=== PATIENT | female | born 1960 | race Caucasian/White ===

== ENCOUNTER → 2019-03-22 12:11 | Outpatient (CLI) | payer BC, SELFPAY ==
[2019-03-22 13:03] LABS: Add Manual Diff / Slide Review NO; Basophils Absolute Auto 100 /uL (0-100); Basophils Percent Auto 1.4 % (0-2); Eosinophils Absolute Auto 300 /uL (0-450); Eosinophils Percent Auto 3.2 % (2-4); Hematocrit 43.6 % (36-46); Hemoglobin 14.8 g/dL (12.0-16.0); Lymphocytes Absolute Auto 2300 /uL (1100-4500); Lymphocytes Percent Auto 28.6 % (25-40); Mean Corpuscular HGB Conc 33.8 % (30-36); Mean Corpuscular Hemoglobin 30.2 PG (26-34); Mean Corpuscular Volume 89.3 fL (80-100); Monocytes Absolute Auto 500 /uL (0-900); Monocytes Percent Auto 6.8 % (3-14); Neutrophils Absolute Auto 4800 /uL (1500-7000); Platelet Count 352 X10^3/uL (150-400); Red Blood Cell Count 4.88 X10^6/uL (4.0-5.2); Red Cell Distribution Width 13.2 % (11.6-14.8)
[2019-03-22 13:15] LABS: Alanine Aminotransferase 23 IU/L (9-52); Albumin 4.5 g/dL (3.5-5.0); Albumin Globulin Ratio 1.6 (1.0-2.8); Alkaline Phosphatase 126 U/L (38-126); Aspartate Aminotransferase 21 IU/L (14-36); BUN Creatinine Ratio 14.3 (6-22); Bilirubin Total 0.5 mg/dL (0.2-1.3); Blood Urea Nitrogen 10 mg/dL (7-17); Calcium 9.4 mg/dL (8.4-10.2); Carbon Dioxide 28 mmol/L (22-32); Chloride 98 mmol/L (98-107); Cholesterol 302 mg/dL (140-199); Estimated Glomerular Filt Rate > 60.0 mL/min (>60); Globulin 2.8 g/dL (1.7-4.1); Glucose 97 mg/dL (70-100); HDL Cholesterol 80 mg/dL (40-60); HEMOLYSIS < 15 (0-50); LDL Cholesterol Calculated 194 mg/dL (<100); Sodium 135 mmol/L (137-145); Total Protein 7.3 g/dL (6.3-8.2); Triglycerides 139 mg/dL (35-150)
[2019-03-22 13:27] LABS: INR 0.9 (0.9-1.3); Prothrombin Time 10.1 SECONDS (10.1-12.7)
[2019-03-22 13:29] LABS: PTT Partial Thromboplastin Tim 31 SECONDS (26.4-36.2)
[2019-03-22 13:44] LABS: TSH w/ Reflex to FT4 1.56 uIU/mL (0.47-4.68)
[2019-03-22 13:53] LABS: Appearance Urine UA CLEAR; Bilirubin Urine UA NEGATIVE (NEGATIVE); Color Urine UA YELLOW; Glucose Urine UA NEGATIVE (Negative); Ketones Urine UA NEGATIVE (NEGATIVE); Leukocyte Esterase Urine UA NEGATIVE (NEGATIVE); Nitrite Urine UA NEGATIVE (Negative); Occult Blood Urine UA TRACE-LYSED (Negative); Protein Urine UA 2+ (Negative); Urobilinogen Urine UA 0.2 E.U./dL (0.2); pH Urine UA 7.5 (4.5-8.0)
[2019-03-22 14:22] LABS: Amorphous Sediment Urine 1+; Bacteria Urine Few (2-10); RBC Urine 0-1/HPF (0-5/HPF); Squamous Epithelial Cell Urine 5-10 /HPF (0-5/HPF); WBC Urine 1-5/HPF (0-5/HPF)
[2019-03-25 11:54] LABS: Cardiolipin Ab IgA <11 APL; Cardiolipin Ab IgG <14 GPL; Cardiolipin Ab IgM <12 MPL
[2019-03-25 13:58] LABS: Protein C Activity 185 % normal (70-180)
[2019-03-25 15:47] LABS: Angiotensin Converting Enzyme 54 U/L (9-67)
[2019-03-31 12:58] LABS: B2-Glycoprotein I IgA AB < 9; B2-Glycoprotein I IgG AB < 9; B2-Glycoprotein I IgM AB < 9
[2019-03-31 13:11] LABS: Phos. Serine AB IgM < 25
[2019-03-31 13:14] LABS: Cardiolipin Ab IgM < 11
[2019-03-31 13:34] LABS: Cardiolipin Ab IgA < 14
[2019-03-31 13:46] LABS: Cardiolipin Ab IgG < 12
[2019-03-31 13:51] LABS: Antiphospholipid Aby Panel ANTIPHOSPHOLIPID AB
== END ==
PROVIDERS: Visit Provider Internal Medicine
DX: Z86.718 Personal history of other venous thrombosis and embolism (principal); D86.0 Sarcoidosis of lung; R53.83 Other fatigue; K22.70 Barrett's esophagus without dysplasia; Z13.220 Encounter for screening for lipoid disorders
CPT/HCPCS: 36415; 80053; 80061; 81001; 81240; 81241; 82164; 84443; 85025; 85300; 85303; 85306; 85610; 85613; 85730; 86146; 86147; 86148

== ENCOUNTER → 2020-08-13 12:42 | Outpatient (CLI) | payer BC, SELFPAY ==
[2020-08-13 13:17] LABS: COVID19 -Nasal RAPID Negative (Negative)
== END ==
PROVIDERS: PCP Internal Medicine; Visit Provider Nurse Practitioner
DX: J02.9 Acute pharyngitis, unspecified (principal); R05 Cough
CPT/HCPCS: 87635

== ENCOUNTER → 2020-09-24 16:30 | Outpatient (CLI) | payer BC, SELFPAY ==
--- NOTE | 2020-09-24 16:31 | DI.MG.S_ITS ---
BILATERAL DIGITAL SCREENING MAMMOGRAM 3D/2D WITH CAD: 09/24/2020 CLINICAL: Routine screening. Family history of breast cancer. Comparison is made to exams dated: 06/03/2018 mammogram, 12/11/2016 mammogram, and 11/09/2015 mammogram - outside location. The tissue of both breasts is heterogeneously dense. This may lower the sensitivity of mammography. Current study was also evaluated with a Computer Aided Detection (CAD) system. No significant masses, calcifications, or other findings are seen in either breast. There has been no significant interval change. IMPRESSION: NEGATIVE There is no mammographic evidence of malignancy. A 1 year screening mammogram is recommended. This exam was interpreted at Station ID: [id number]. NOTE: For mammograms, a report in lay terms will be sent to the patient. Approximately 15% of breast malignancies will not be visualized mammographically. In the management of a palpable breast mass, a negative mammogram must not discourage biopsy of a clinically suspicious lesion. Electronically Signed By: Yayo barajas/jose f:09/24/2020 16:59:09 letter sent: Normal Exam ACR BI-RADS Category 1: Negative 3341F
== END ==
PROVIDERS: PCP Internal Medicine; Referring Provider Internal Medicine; Visit Provider Internal Medicine
DX: Z12.31 Encounter for screening mammogram for malignant neoplasm of breast (principal); Z80.3 Family history of malignant neoplasm of breast
CPT/HCPCS: 77063; 77067

== ENCOUNTER → 2020-12-06 14:53 | Outpatient (ROUT) | payer BC, SELFPAY ==
[2020-12-06 16:20] LABS: Alanine Aminotransferase 16 IU/L (<35); Albumin 4.2 g/dL (3.5-5.0); Albumin Globulin Ratio 1.8 (1.0-2.8); Alkaline Phosphatase 123 U/L (38-126); Aspartate Aminotransferase 23 IU/L (14-36); BUN Creatinine Ratio 19.7 (6-22); Bilirubin Total 0.3 mg/dL (0.2-1.3); Blood Urea Nitrogen 13 mg/dL (7-17); Calcium 9.9 mg/dL (8.4-10.2); Carbon Dioxide 28 mmol/L (22-32); Chloride 100 mmol/L (98-107); Cholesterol 260 mg/dL (140-199); Estimated Glomerular Filt Rate > 60.0 mL/min (>60); Globulin 2.4 g/dL (1.7-4.1); Glucose 94 mg/dL (80-110); HDL Cholesterol 71 mg/dL (40-60); HEMOLYSIS < 15 (0-50); LDL Cholesterol Calculated 163 mg/dL (<100); Potassium 5.1 mmol/L (3.4-5.1); Sodium 134 mmol/L (137-145); Total Protein 6.6 g/dL (6.3-8.2); Triglycerides 132 mg/dL (35-150)
[2020-12-06 17:53] LABS: Vitamin D 25 Hydroxy (D3) 106 ng/mL (30.0-100.0)
== END ==
PROVIDERS: PCP Internal Medicine; Visit Provider Physician Assistant
DX: J30.1 Allergic rhinitis due to pollen (principal); E55.9 Vitamin D deficiency, unspecified; I10 Essential (primary) hypertension; E78.2 Mixed hyperlipidemia
CPT/HCPCS: 80053; 80061; 82306

== ENCOUNTER → 2020-12-19 10:06 | Outpatient (CLI) | payer BC, SELFPAY ==
[2020-12-19 11:21] LABS: Add Manual Diff / Slide Review NO; Basophils Absolute Auto 100 /uL (0-100); Basophils Percent Auto 2.1 % (0-2); Eosinophils Absolute Auto 300 /uL (0-450); Eosinophils Percent Auto 5.8 % (2-4); Hematocrit 40.2 % (36-46); Hemoglobin 13.4 g/dL (12.0-16.0); Lymphocytes Absolute Auto 2300 /uL (1100-4500); Mean Corpuscular HGB Conc 33.2 % (30-36); Mean Corpuscular Hemoglobin 30.1 PG (26-34); Mean Corpuscular Volume 90.7 fL (80-100); Monocytes Absolute Auto 500 /uL (0-900); Neutrophils Absolute Auto 2600 /uL (1500-7000); Neutrophils Percent Auto 45.1 % (50-75); Platelet Count 315 X10^3/uL (150-400); Red Blood Cell Count 4.43 X10^6/uL (4.0-5.2); Red Cell Distribution Width 13.6 % (11.6-14.8); White Blood Cell Count 5.8 X10^3/uL (4.5-11.0)
== END ==
PROVIDERS: PCP Physician Assistant; Referring Provider Physician Assistant; Visit Provider Physician Assistant
DX: J30.1 Allergic rhinitis due to pollen (principal); E55.9 Vitamin D deficiency, unspecified; I10 Essential (primary) hypertension; E78.2 Mixed hyperlipidemia
CPT/HCPCS: 36415; 85025

== ENCOUNTER → 2021-04-12 17:15 | Outpatient (ROUT) | payer BC, SELFPAY ==
[2021-04-12 17:27] LABS: COVID19 -Nasal RAPID POSITIVE (Negative)
== END ==
PROVIDERS: PCP Physician Assistant; Visit Provider Nurse Practitioner
DX: U07.1 COVID-19 (principal)
CPT/HCPCS: 87635

== ENCOUNTER → 2021-04-21 10:21 | Outpatient (CLI) | payer BC, SELFPAY ==
--- NOTE | 2021-04-21 10:22 | DI.RAD.S_ITS ---
PROCEDURE: XR CHEST 2V INDICATIONS: r/o secondary infection post covid TECHNIQUE: 2 views of the chest were acquired. COMPARISON: [facility], , CHEST 1 VIEW, 02/18/2017, 21:37. FINDINGS: Surgical changes and devices: None. Lungs and pleura: Lungs are clear. No pleural effusions or pneumothorax. Mediastinum: Mediastinal contours are normal. Heart size is normal. Bones and chest wall: No suspicious bony abnormalities. Soft tissues appear unremarkable. IMPRESSION: No acute cardiopulmonary abnormality. Dictated by: Domingo Altamirano M.D. on 04/21/2021 at 9:35 Approved by: Domingo Altamirano M.D. on 04/21/2021 at 9:36
== END ==
PROVIDERS: PCP Physician Assistant; Referring Provider Nurse Practitioner; Visit Provider Nurse Practitioner
DX: R05 Cough (principal)
CPT/HCPCS: 71046

== ENCOUNTER → 2021-10-02 16:33 | Outpatient (CLI) | payer BC, SELFPAY ==
--- NOTE | 2021-10-02 | DI.MG.S_ITS ---
BILATERAL DIGITAL SCREENING MAMMOGRAM 3D/2D WITH CAD: 10/02/2021 CLINICAL: Routine screening. Family history of breast cancer. Comparison is made to exams dated: 09/24/2020 mammogram - [facility], 06/03/2018 mammogram, and 12/11/2016 mammogram - outside location. The tissue of both breasts is heterogeneously dense. This may lower the sensitivity of mammography. Current study was also evaluated with a Computer Aided Detection (CAD) system. No significant masses, calcifications, or other findings are seen in either breast. There has been no significant interval change. IMPRESSION: NEGATIVE There is no mammographic evidence of malignancy. A 1 year screening mammogram is recommended. This exam was interpreted at Station ID: [id number]. NOTE: For mammograms, a report in lay terms will be sent to the patient. Approximately 15% of breast malignancies will not be visualized mammographically. In the management of a palpable breast mass, a negative mammogram must not discourage biopsy of a clinically suspicious lesion. Electronically Signed By: Rufino blackwell/jose f:10/03/2021 08:57:29 letter sent: Normal Exam ACR BI-RADS Category 1: Negative 3341F
== END ==
PROVIDERS: PCP Physician Assistant; Referring Provider Physician Assistant; Visit Provider Physician Assistant
DX: Z12.31 Encounter for screening mammogram for malignant neoplasm of breast (principal); Z80.3 Family history of malignant neoplasm of breast
CPT/HCPCS: 77063; 77067

== ENCOUNTER → 2021-12-04 17:27 | Outpatient (CLI) | payer BC, SELFPAY ==
--- NOTE | 2021-12-04 | DI.MRI.S_ITS ---
PROCEDURE: MR CERVICAL SPINE WO CON INDICATIONS: Other migraine, intractable, with status migrains TECHNIQUE: Noncontrast sagittal T1 spin echo and T2 fast spin echo, sagittal STIR, foraminal oblique sagittal T2 fast spin echo, and axial gradient echo or T2 fast spin echo through the cervical spine. COMPARISON: None. FINDINGS: Image quality: Excellent. Alignment and Curvature: There is 3 mm retrolithesis of C3 on C4, C4 on C5, 2 mm retrolithesis of C5 on C6, 4 mm C6 on C7, 2 mm anterolithesis of C7 on T1 and T1 on T2. Bone Marrow: Marrow demonstrates normal overall signal. Spinal Cord: Visualized spinal cord has normal size and signal. No cerebellar tonsillar herniation. Paraspinous Soft Tissues: No paravertebral masses. Prevertebral soft tissues are normal in thickness. Moderate to severe disc dessication. C2-C3: Mild disc bulge without spinal stenosis. Mild to moderate left foraminal narrowing. C3-C4: Mild disc bulge with mild spinal stenosis. Severe left and moderate to severe right foraminal narrowing with uncovertebral hypertrophy. C4-C5: Mild disc bulge with moderate spinal stenosis. Severe bilateral right greater than left foraminal narrowing with uncovertebral hypertrophy. C5-C6: Mild disc bulge with moderate to severe spinal stenosis. Severe bilateral foraminal narrowing with uncovertebral hypertrophy. C6-C7: Mild disc bulge with moderate to severe spinal stenosis. Severe bilateral foraminal narrowing with uncovertebral hypertrophy. C7-T1: Mild disc bulge with mild spinal stenosis. Moderate left foraminal narrowing with uncovertebral hypertrophy. IMPRESSION: Multilevel degenerative changes. Moderate to severe spinal stenosis secondary to disc bulge. Moderate to severe foraminal narrowing secondary to uncovertebral arthropathy. Dictated by: Ayanna Jackson M.D. on 12/05/2021 at 16:50 Approved by: Ayanna Jackson M.D. on 12/05/2021 at 16:58
--- NOTE | 2021-12-04 | DI.MRI.S_ITS ---
PROCEDURE: MR HEAD/BRAIN WO/W CON INDICATIONS: Other migraine, intractable, with status migrains TECHNIQUE: Noncontrast axial T1 spin echo, axial T2 fast spin echo, sagittal and axial FLAIR, coronal T2 fast spin echo, axial gradient echo, axial diffusion and ADC through the brain. After the administration of contrast, axial and coronal 3D VIBE or T1 spin echo with fat saturation through the brain. COMPARISON: None. FINDINGS: Image quality: Excellent. CSF Spaces: Basal cisterns are patent. No extra-axial fluid collections. Ventricles are normal in size and shape. Brain: No midline shift. No intracranial bleeds or masses. There is mild, diffuse cerebral volume loss. There are mild periventricular and subcortical white matter chronic microvascular ischemic changes. No abnormal intracranial enhancement. The brainstem appears normal. Diffusion-weighted images demonstrate no acute ischemic insults. No chronic ischemic insults. Normal intravascular flow voids are present. Skull and face: Calvarial marrow is normal in signal. Orbits appear normal. Sinuses: Sinuses and mastoids appear clear. IMPRESSION: 1. No acute intracranial disease process. 2. No abnormal intracranial mass or mass effect. 3. No suspicious postcontrast enhancement. 4. No areas of acute or chronic infarction. 5. No intracranial hemorrhage. Dictated by: Noelle Salazar MD, PhD on 12/05/2021 at 10:01 Approved by: Noelle Salazar MD, PhD on 12/05/2021 at 10:05
== END ==
PROVIDERS: PCP Physician Assistant; Referring Provider Physician Assistant; Visit Provider Physician Assistant
DX: G43.811 Other migraine, intractable, with status migrainosus (principal)
CPT/HCPCS: 70553; 72141; A9579

== ENCOUNTER → 2022-01-15 10:25 | Outpatient (CLI) | payer BC, SELFPAY ==
[2022-01-15 13:00] LABS: COVID19 -Nasal RAPID Negative (Negative)
== END ==
PROVIDERS: PCP Physician Assistant; Visit Provider Family Medicine Sleep Medicine
DX: Z20.822 Contact with and (suspected) exposure to COVID-19 (principal)
CPT/HCPCS: 87635; C9803

== ENCOUNTER → 2022-01-17 10:37 | Outpatient (CLI) | payer BC, SELFPAY ==
--- NOTE | 2022-01-17 | DI.NM.S_ITS ---
PROCEDURE: NM JAMES PERF SPECT REST & STR Rest and exercise myocardial perfusion SPECT with gated imaging and ejection fraction RADIOPHARMACEUTICAL: 11.0 mCi Tc-99m sestamibi IV at rest and 25.2 mCi Tc-99m sestamibi IV at peak exercise. A two day-protocol was performed. INDICATIONS: Shortness of breath TECHNIQUE: Radiopharmaceutical was injected at peak stress test, and also at rest. SPECT images were obtained. SPECT myocardial perfusion images were displayed in short axis, horizontal long axis, and vertical long axis views. Gated images were reviewed using [employer] software. COMPARISON: None. CARDIAC STRESS: A standard Kenji treadmill exercise tolerance test was performed by the patient under the supervision of an attending staff. The patient exercised for 8 minutes and 11 seconds; functional aerobic impairment (KHAI) is -25%. Hemodynamic data: There is normal blood pressure and heart rate response to exercise stress. Patient achieved 91% of maximum predicted heart rate at peak exercise. Symptoms: Patient denied chest pain during exercise. EKG: No diagnostic EKG changes of ischemia; rare PVCs. FINDINGS: Raw data: There is good myocardial labeling by radiotracer. No significant motion artifacts. Left ventricle function: Gated images demonstrate normal left ventricle wall thickening. No segmental wall motion abnormality. No transient ischemic dilation; TID is 0.98 (normal less than 1.3). The left ventricle resting end-diastolic volume is 96 mL. Left ventricle stress ejection fraction is 77%; normal values are above 45%. Myocardial perfusion: There is normal distribution of activity in the left and right ventricular myocardium. No fixed or reversible perfusion defects. IMPRESSION: Low risk, normal treadmill nuclear stress test 1) No perfusion evidence of ischemia or infarction. 2) Normal left ventricular size, wall motion, and systolic function (EF post stress 77%). 3) No ST changes with exercise. 4) No angina during the study. 5) Good exercise tolerance (8.3 METs, KHAI -25%). Target heart rate achieved. Appropriate BP response to exercise. 6) No prior nuclear stress test available for comparison. Dictated by: Adelita Sotomayor MD on 01/17/2022 at 17:00 Approved by: Adelita Sotomayor MD on 01/17/2022 at 17:02
--- NOTE | 2022-01-17 15:27 | PM.TREADMILL ---
Cardiac Stress Test Report Referral & Results Date Patient Seen: 01/17/22 Time Patient Seen: 15:27 Requesting provider: Cori Schumacher Indication: Dyspnea on exertion Rest ECG: Sinus rhythm Procedure Note: Standard Kenji protocol, 8:11 mins, 8.3 METS Good exercise capacity, KHAI -25% Normal hemodynamic response to exercise No chest pain or anginal symptoms No significant ST changes at peak exercise Rare couplets Impression: Normal exercise stress test Nuclear images pending Please note: Actual ECG tracings can be found in the PACS system.
== END ==
PROVIDERS: PCP Physician Assistant; Referring Provider Physician Assistant; Visit Provider Physician Assistant
DX: R06.02 Shortness of breath (principal)
CPT/HCPCS: 78452; 93017; A9502

== ENCOUNTER → 2022-10-20 14:06 | Outpatient (CLI) | payer OTHER, SELFPAY ==
--- NOTE | 2022-10-20 | DI.MG.S_ITS ---
BILATERAL DIGITAL SCREENING MAMMOGRAM 3D/2D WITH CAD: 10/20/2022 CLINICAL: Routine screening. Family history of breast cancer. Comparison is made to exams dated: 10/02/2021 mammogram, 09/24/2020 mammogram - [facility], and 06/03/2018 mammogram - outside location. Both breasts are heterogeneously dense, which may obscure small masses (category c / 51-75% glandular tissue). Current study was also evaluated with a Computer Aided Detection (CAD) system. No significant masses, calcifications, or other findings are seen in either breast. There has been no significant interval change. IMPRESSION: NEGATIVE There is no mammographic evidence of malignancy. A 1 year screening mammogram is recommended. Based on the Tyrer Cuzick model (a risk assessment model) the patient's lifetime risk is 11.5% and her 10 year risk is 5.2%. According to the ACR, ACS, and NCCN guidelines, an annual breast MRI exam along with mammogram is recommended if the patient's lifetime risk is 20% or greater. This exam was interpreted at Station ID: [id number]. NOTE: For mammograms, a report in lay terms will be sent to the patient. Approximately 15% of breast malignancies will not be visualized mammographically. In the management of a palpable breast mass, a negative mammogram must not discourage biopsy of a clinically suspicious lesion. Electronically Signed By: Yayo barajas/jose f:10/20/2022 14:47:26 letter sent: Normal Exam ACR BI-RADS Category 1: Negative 3341F
== END ==
PROVIDERS: PCP Physician Assistant; Referring Provider Physician Assistant; Visit Provider Physician Assistant
DX: Z12.31 Encounter for screening mammogram for malignant neoplasm of breast (principal); Z80.3 Family history of malignant neoplasm of breast
CPT/HCPCS: 77063; 77067

== ENCOUNTER → 2023-10-30 14:08 | Outpatient (CLI) | payer OTHER, SELFPAY ==
--- NOTE | 2023-10-30 14:11 | DI.US.S_ITS ---
PROCEDURE: US PERIPH VENOUS LOW EXTREM RT INDICATIONS: RIGHT LEG SWELLING TECHNIQUE: Real-time imaging, as well as color and pulse Doppler interrogation, were performed of the lower extremity deep veins from the inguinal ligament to the popliteal fossa, with documentation of the visualized calf veins. COMPARISON: None. FINDINGS: The common femoral, femoral, popliteal, and the visualized calf veins are normally compressible, and free of intraluminal thrombus. Color and pulse Doppler demonstrate normal phasic intraluminal flow. There is normal augmentation response to distal compression maneuver. IMPRESSION: No deep venous thrombosis identified within the right lower extremity. Dictated by: Natalio DALTON Interpreted: Chilo Wright MD on 10/30/2023 at 14:51 Transcribed by: CEDRICK on 10/30/2023 at 14:52 Approved by: Chilo Wright M.D. on 10/30/2023 at 17:07
== END ==
PROVIDERS: PCP Physician Assistant; Referring Provider Internal Medicine; Visit Provider Internal Medicine
DX: M79.89 Other specified soft tissue disorders (principal)
CPT/HCPCS: 93971

== ENCOUNTER → 2023-12-03 12:12 | Outpatient (CLI) | payer OTHER, SELFPAY ==
--- NOTE | 2023-12-03 12:13 | DI.RAD.S_ITS ---
Bone Density Report Name: DWIGHT JOHNSON Age: 63 Sex: Female Ethnicity: White Date of : 1960 Indication: postmenopausal; screening for osteoporosis; prior fracture; Referring Provider: GENEVA YOUNG Study: Bone densitometry was performed. Exam Date: December 03, 2023 Accession number: [id number] Bone Density: Region BMD T-score Z-score Classification AP Spine(L1, L2, L3) 0.801 -2.0 -0.3 Osteopenia Femoral Neck (Left) 0.509 -3.1 -1.6 Osteoporosis Total Hip (Left) 0.596 -2.8 -1.6 Osteoporosis Total Forearm (Left) 0.380 -3.7 -2.1 Osteoporosis 1/3 Forearm (Left) 0.488 -3.4 -1.8 Osteoporosis UD Forearm (Left) 0.292 -2.6 -1.5 Osteoporosis World Health Organization criteria for BMD impression classify patients as: Normal (T-score at or above -1.0), Osteopenia (T-score between -1.0 and -2.5), or Osteoporosis (T-score at or below -2.5). 10-year Fracture Risk: FRAX not reported because: Some T-score for Spine Total or Hip Total or Femoral Neck at or below -2.5 Prior hip or vertebral fracture Impression: The patient has established osteoporosis, based on the Left Femoral Neck T-score and the existence of a prior fracture. The patient has risk factors, including: previous fracture. Discussion: HIGH RISK OF FRACTURE. BONE DENSITY IS UNDESIRABLY LOW AT ONE OR MORE SKELETAL SITES, CONSISTENT WITH POSTMENOPAUSAL OSTEOPOROSIS. This patient's lowest T-score, in a patient who has previously fractured, meets the World Health Organization's (WHO) criteria for severe osteoporosis. In untreated patients, the risk of osteoporotic fracture increases approximately two-fold for each 1.0 SD decrease in T-score. Low bone density is not the only risk factor for fracture; also consider factors such as patient's age, frailty or poor health, risk of falling, risk of injury, previous osteoporotic fracture, family history of osteoporosis, cigarette smoking, low body weight, etc. Not everyone with low bone mineral density has osteoporosis; osteomalacia and other metabolic bone disorders should also be considered. Patients who have osteoporosis should be evaluated for specific diseases and conditions (secondary causes) that may cause or contribute to bone loss. The [place] Association [employer] Clinical Endocrinologists (AACE) and National Osteoporosis Foundation (NOF) recommend pharmacologic intervention for all postmenopausal women with a previous hip or vertebral fracture and a T-score in this range. The patient should follow a healthful lifestyle (good nutrition with adequate calcium and vitamin D, and appropriate weight-bearing exercise). Follow-Up: Consider a repeat BMD and Vertebral Fracture Assessment (VFA) exam in 2 years or sooner if medically necessary, to reassess this patient's status. Reported by: SANJU TYSON M.D. on 12/03/2023 12:40:00 PM.
== END ==
LOC: RAD 12:12
PROVIDERS: PCP Physician Assistant; Referring Provider Internal Medicine; Visit Provider Internal Medicine
DX: M80.051D Age-related osteoporosis with current pathological fracture, right femur, subsequent encounter for fracture with routine healing (principal); Z13.820 Encounter for screening for osteoporosis; S72.001D Fracture of unspecified part of neck of right femur, subsequent encounter for closed fracture with routine healing
CPT/HCPCS: 77080; 77081

== ENCOUNTER → 2024-04-05 08:37 | Outpatient (CLI) | payer OTHER, SELFPAY ==
--- NOTE | 2024-04-05 | DI.CT.S_ITS ---
PROCEDURE: CT LUNG LOW DOSE SCREENING INDICATIONS: FORMER SMOKER TECHNIQUE: Noncontrast 2.0-2.5 mm thick sections acquired from the pulmonary apices to the posterior costophrenic angles. 7 mm thick axial MIP, and 5 mm coronal and sagittal reformats were then acquired. For radiation dose reduction, the following was used: automated exposure control, adjustment of mA and/or kV according to patient size. COMPARISON: None. FINDINGS: Image quality: Diagnostic. Lower Neck: No enlarged lymph nodes. Thyroid: There 2 0.3 cm nodules within both thyroid lobes. Axilla: There is a 1.0 cm lymph node within left axilla. Chest Wall: Unremarkable. Bones: No destructive osseous lesion. Multilevel degenerative disc disease. Lungs and Pleura: No pneumothorax or pleural effusions. There is a solid 1.0 cm nodule with spiculated margins in the right middle lobe. There is a 0.5 cm solid nodule within the left lower lobe that is well-marginated and oval in shape. There is centrilobular emphysema. Atelectasis and/or scarring along the dependent portions of the lower lungs. Mild scarring at the lung apices. Heart: Heart size is normal. No pericardial effusion. Thoracic Vessels: The aorta and pulmonary arteries demonstrate normal size. Mediastinum and Kita: Questionable 1.3 cm lymph node within the left hilum. Esophagus: No wall thickening. No hiatal hernia. Upper Abdomen: Visualized upper abdomen solid organs and bowel loops appear normal. IMPRESSION: 1. There is a 1.0 cm solid pulmonary nodule within the right middle lobe that demonstrates spiculated margins. There is a 0.5 cm solid nodule within the left lower lobe that is well-marginated and oval in shape. LUNG-RADS 4B, consider a PET-CT . Clinically Significant Non-pulmonary Findings: 1. Questionable 1.3 cm lymph node within the left hilum . There is a 1.0 cm lymph node within the left axilla. These are of uncertain clinical relevance, attention on follow-up. 2. There are 2 0.3 cm nodules within both thyroid lobes . An ultrasound of the thyroid gland can be performed on a nonemergent basis if clinically indicated. 3. Centrilobular emphysema. Dictated by: Hu Pritchett M.D. on 04/08/2024 at 8:54 Approved by: Hu Pritchett M.D. on 04/08/2024 at 9:37
== END ==
PROVIDERS: PCP Physician Assistant; Referring Provider Physician Assistant; Visit Provider Physician Assistant
DX: Z87.891 Personal history of nicotine dependence (principal); Z12.2 Encounter for screening for malignant neoplasm of respiratory organs; R91.8 Other nonspecific abnormal finding of lung field; E04.2 Nontoxic multinodular goiter; J43.2 Centrilobular emphysema
CPT/HCPCS: 71271

== ENCOUNTER → 2024-04-12 14:07 | Outpatient (CLI) | payer OTHER, SELFPAY ==
--- NOTE | 2024-04-12 14:08 | DI.US.S_ITS ---
PROCEDURE: US THYROID INDICATIONS: MULTIPLE THYROID NODULES TECHNIQUE: Real-time scanning was performed of the thyroid gland, with image documentation. COMPARISON: [facility], CT, CT LUNG LOW DOSE SCREENING, 04/05/2024, 8:43. FINDINGS: Thyroid: Right lobe measures 1.4 x 1.9 x 4.7 cm. Left lobe measures 1.0 x 1.5 x 4.2 cm. Isthmus is 0.2 cm thick. Echotexture is homogeneous. No thyroid nodule is found. No adjacent adenopathy is identified. IMPRESSION: TI-RADS category 1, benign. No biopsy recommended. No follow-up necessary. Please note that this ultrasound follow-up was based on a noncontrast low-dose CT screening for lung carcinoma. Mild heterogeneity of the thyroid lobe was suspected including 1 small 3 mm thyroid nodule possibly present at each thyroid lobe. Sonographic follow-up provides a more accurate assessment and for this reason no additional follow-up is recommended regarding the thyroid gland itself. ACR definitions and recommendations: TI-RADS 1 (benign): 0 points. FNA not needed. TI-RADS 2 (not suspicious): 2 points. FNA not needed. TI-RADS 3 (mildly suspicious): 3 points. * FNA if 2.5 cm or larger, follow up if 1.5 cm or larger (at 1, 3, and 5 years). TI-RADS 4 (moderately suspicious): 4-6 points. * FNA if 1.5 cm or larger, follow up if 1 cm or larger (at 1, 2, 3, and 5 years). TI-RADS 5 (highly suspicious): 7 points or more. * FNA if 1 cm or larger, follow up if 0.5 cm or larger (every year for 5 years). Dictated by: Luke Aguilar M.D. on 04/14/2024 at 9:43 Approved by: Luke Aguilar M.D. on 04/14/2024 at 9:48
== END ==
PROVIDERS: PCP Physician Assistant; Referring Provider Physician Assistant; Visit Provider Physician Assistant
DX: E04.2 Nontoxic multinodular goiter (principal)
CPT/HCPCS: 76536

== ENCOUNTER → 2024-08-25 14:40 | Outpatient (CLI) | payer OTHER, SELFPAY ==
--- NOTE | 2024-08-25 14:43 | DI.CT.S_ITS ---
PROCEDURE: CT CHEST WO CON INDICATIONS: Recheck on pulmonary nodule TECHNIQUE: Noncontrast 2.0-2.5 mm thick sections acquired from the pulmonary apices to the posterior costophrenic angles. 7 mm thick axial MIP and 5 mm coronal and sagittal reformats were then acquired. For radiation dose reduction, the following was used: automated exposure control, adjustment of mA and/or kV according to patient size. COMPARISON: [facility], CT, CT LUNG LOW DOSE SCREENING, 04/05/2024, 8:43. FINDINGS: Image quality: Diagnostic. Lower Neck: No enlarged lymph nodes. Thyroid: No thyroid nodules which require sonographic follow up, per consensus guidelines. Axillae: No enlarged lymph nodes. Chest Wall: Unremarkable. Bones: Unremarkable. Lungs and Pleura: No pneumothorax or pleural effusions. No consolidation or suspicious nodules. At the lateral right middle lobe at approximately the level of the franklyn seen on series 3, image 126 there is a small focus that previously had measured 1 cm and now measures 8 mm, and extends to be contiguous with a small area of curvilinear lung scarring. This likely represents sequela of prior inflammatory event. A smaller 3-4 mm nodule at the anterolateral left costophrenic sulcus, 3/245, has also slightly diminished in size. No new pulmonary nodule has developed elsewhere Heart: Heart size is normal. No pericardial effusion. Thoracic Vessels: The aorta and pulmonary arteries demonstrate normal size. Mediastinum and Kita: No enlarged lymph nodes. Esophagus: No wall thickening. No hiatal hernia. Upper Abdomen: Visualized upper abdomen solid organs and bowel loops appear normal. IMPRESSION: The right side and left side pulmonary nodules noted 04/05/24 have each slightly diminished in size and are considered benign in etiology. The patient appears to have been enrolled in a screening program for early detection of lung carcinoma. Assuming that is the case this CT scan establishes a lung rads category 1 status, with recommendation of follow-up screening low-dose CT scanning without contrast in 1 year from this examination. No enlarged nodes are seen. No thyroid nodules are identified. Fleischner Society criteria for SOLID lung nodule followup. Nodule size (mm)Low-risk patientHigh-risk patient<6 (single or multiple)No routine followup.Optional CT at 12 months. 6-8 (single or multiple)CT at 6-12 months, then optional CT at 18-24 mo.CT at 6-12 months, then CT at 18-24 months. >8 (single)CT at 3 months, PET-CT, or biopsy. Same as for low-risk pts. >8 (multiple)CT at 3-6 months, then optional CT at 18-24 mo.CT at 3-6 months, then CT at 18-24 months. Fleischner Society criteria for SUB-SOLID lung nodule followup. Solitary pure ground-glass nodules<6 mm (ground glass or part solid)No followup needed. 6 mm or larger (ground glass)CT at 6-12 months to confirm persistence, then CT every 2 years until 5 years.6 mm or larger (part solid)CT at 3-6 months to confirm persistence, then annual CT until 5 years if unchanged and solid component remains <6 mm. Multiple sub-solid nodules<6 mmCT at 3-6 months, then CT consider at 2 & 4 years for high risk patients. [address] at 3-6 months. Subsequent management based on most suspicious lesions. Recommendations do not apply to lung cancer screening, patients with immunosuppression, or patients with known primary cancer. Dictated by: Luke Aguilar M.D. on 08/25/2024 at 16:57 Approved by: Luke Aguilar M.D. on 08/25/2024 at 17:05
== END ==
PROVIDERS: PCP Physician Assistant; Referring Provider Internal Medicine Critical Care Medicine; Visit Provider Internal Medicine Critical Care Medicine
DX: R91.8 Other nonspecific abnormal finding of lung field (principal)
CPT/HCPCS: 71250

== ENCOUNTER → 2025-01-23 16:36 | Outpatient (CLI) | payer OTHER, SELFPAY ==
--- NOTE | 2025-01-23 16:37 | DI.MG.S_ITS ---
MM screening mammo BI: 01/23/2025. BI-RADS: 0 CLINICAL: 64-year old female for bilateral screening mammogram. Tyrer-Cuzick lifetime risk of 9.4%. No personal or first-degree family history of breast cancer. PRIOR EXAMS 10/20/2022, 10/02/2021, 09/24/2020. MAMMOGRAPHY TECHNIQUE: 2D and 3D (tomosynthesis) digital mammographic views obtained, with additional images as needed for full coverage. Current study was also evaluated with a Computer Aided Detection (CAD) system. DENSITY D. The breasts are extremely dense, which lowers the sensitivity of mammography. MAMMOGRAPHY FINDINGS Right: No suspicious mass, asymmetry, microcalcification, or other abnormality seen. No significant change from comparison. Left: MLO only, Upper, Middle depth: Asymmetry needing additional imaging evaluation. IMPRESSION: Right * No evidence of malignancy. Left (Asymmetry): MLO only, Upper, Middle depth * Incomplete - asymmetry needing additional imaging evaluation. RECOMMENDATIONS Left: MLO only, Upper, Middle depth * Further evaluation with diagnostic mammography and diagnostic ultrasound. Ultrasound to be performed only if needed. OVERALL ASSESSMENT CATEGORY BI-RADS-0: Incomplete - Need Additional Imaging Evaluation. ELECTRONICALLY SIGNED: Krystin Suarez M.D. on 01/24/2025 at 04:20:04 PM PT Interpreting Station ID: [id number]
== END ==
PROVIDERS: PCP Physician Assistant; Referring Provider Physician Assistant; Visit Provider Physician Assistant
DX: Z12.31 Encounter for screening mammogram for malignant neoplasm of breast (principal); R92.343 Mammographic extreme density, bilateral breasts
CPT/HCPCS: 77063; 77067

== ENCOUNTER → 2025-01-24 07:43 | Outpatient (CLI) | payer OTHER, SELFPAY ==
--- NOTE | 2025-01-24 07:44 | DI.US.S_ITS ---
PROCEDURE: US EXTREMITY NONVASC LOWER LT INDICATIONS: skin lump, left leg TECHNIQUE: Real-time scanning was performed of the left calf, with image documentation. COMPARISON: None. FINDINGS: Focused ultrasound examination of left medial calf at the area of concern shows no solid mass or drainable fluid collection. IMPRESSION: No abnormalities are seen in left medial calf at the area of concern. Dictated by: Vishal Whitmore M.D. on 01/24/2025 at 10:00 Approved by: Vishal Whitmore M.D. on 01/24/2025 at 10:00
--- NOTE | 2025-01-24 07:44 | DI.US.S_ITS ---
PROCEDURE: US ABDOMEN LIMITED INDICATIONS: RUQ pain TECHNIQUE: Real-time scanning was performed of the abdominal and retroperitoneal organs, with image documentation. COMPARISON: None. FINDINGS: Liver: Liver is normal in size and homogeneous in echotexture. Gallbladder: No gallstones. No wall thickening. No pericholecystic edema. Negative sonographic Ordoñez's sign. Biliary ducts: Intrahepatic bile ducts are non-dilated. Extrahepatic bile duct caliber measures 6 mm. Normal is 6-7 mm or less in diameter, or 10 mm or less post-cholecystectomy. Pancreas: Visualized portions of the pancreas are sonographically normal. Miscellaneous: No free abdominal fluid. IMPRESSION: Unremarkable right upper quadrant ultrasound Approved by: Shaquille Calvillo M.D. on 01/24/2025 at 13:53
== END ==
PROVIDERS: PCP Physician Assistant; Referring Provider Physician Assistant; Visit Provider Physician Assistant
DX: R10.11 Right upper quadrant pain (principal); R22.42 Localized swelling, mass and lump, left lower limb
CPT/HCPCS: 76705; 76882

== ENCOUNTER → 2025-03-21 13:14 | Outpatient (CLI) | payer OTHER, SELFPAY ==
--- NOTE | 2025-03-21 13:16 | DI.MG.S_ITS ---
MM diagnostic mammo unilat LT, US breast LT limited: 03/21/2025 BI-RADS: 3 CLINICAL: 64-year old female for left diagnostic mammogram and left diagnostic breast ultrasound that is a recall from screening on 01/23/2025. Tyrer-Cuzick lifetime risk of 9.4%. No personal or first-degree family history of breast cancer. PRIOR EXAMS Mammogram(s): 01/23/2025, 10/02/2022, 10/02/2021, 09/24/2020. MAMMOGRAPHY TECHNIQUE: 2D and 3D (tomosynthesis) digital mammographic views obtained, with additional images as needed for full coverage. Current study was also evaluated with a Computer Aided Detection (CAD) system. ULTRASOUND TECHNIQUE Real-time blankenship scale and color doppler imaging of the area of clinical interest was performed with image documentation. Left targeted breast ultrasound of the area of clinical interest and the axilla was performed with image documentation. DENSITY Left: D. The breast is extremely dense, which lowers the sensitivity of mammography. MAMMOGRAPHY FINDINGS Left (finding-1): Upper Outer Quadrant, Middle depth, measuring 0.6cm. Previous report: MLO only, Upper: There is an oval, equal-density mass present. Upon further review, this finding appears similar compared to mammograms dating back to 10/02/2021. ULTRASOUND FINDINGS Left (finding-1): Upper Outer at 1:30, 3.5 cm from nipple, measuring 0.7 x 0.4 x 0.4 cm. Previous report: MLO only, Upper: Correlating with findings on mammogram there is an oval, circumscribed, hypoechoic mass that is parallel. Left: Axilla: No definite axillary lymphadenopathy. IMPRESSION: Left (Mass): Upper Outer at 1:30, 3.5 cm from nipple, measuring 0.7 x 0.4 x 0.4 cm. Previous report: MLO only, Upper * Probably Benign. RECOMMENDATIONS Left: Upper Outer at 1:30, 3.5 cm from nipple * Six month followup with diagnostic ultrasound and diagnostic mammography. COMMENTS: Findings and recommendations were conveyed to the patient during today's evaluation. OVERALL ASSESSMENT CATEGORY BI-RADS-3: Probably Benign. ELECTRONICALLY SIGNED: Rachel Rush M.D. on 03/21/2025 at 04:43:39 PM PT Interpreting Station ID: [id number]
== END ==
LOC: MAMMO 13:15
PROVIDERS: PCP Physician Assistant; Referring Provider Physician Assistant; Visit Provider Physician Assistant
DX: R92.8 Other abnormal and inconclusive findings on diagnostic imaging of breast (principal); R92.342 Mammographic extreme density, left breast; N63.21 Unspecified lump in the left breast, upper outer quadrant
CPT/HCPCS: 76642; 77065; G0279

== ENCOUNTER → 2025-05-25 14:36 | Outpatient (CLI) | payer OTHER, SELFPAY ==
--- NOTE | 2025-05-25 14:44 | DI.RAD.S_ITS ---
PROCEDURE: XR FEMUR LT MIN 2V INDICATIONS: L HIP AND FEMUR PAIN TECHNIQUE: 2 views of the femur were acquired. COMPARISON: None. FINDINGS: Bones: No fractures or dislocations. No suspicious bony lesions. Soft tissues: No suspicious soft tissue calcifications or masses. IMPRESSION: No acute bony abnormality. Dictated by: Paco Issa M.D. on 05/25/2025 at 16:03 Approved by: Paco Issa M.D. on 05/25/2025 at 16:03
--- NOTE | 2025-05-25 14:45 | DI.RAD.S_ITS ---
PROCEDURE: XR HIP W PEL IF DONE LT 2V INDICATIONS: L HIP AND FEMUR PAIN TECHNIQUE: AP pelvis with lateral view(s) of the left hip(s). COMPARISON: None. FINDINGS: Bones: No fractures or dislocations. Pelvic ring appears intact. No suspicious bony lesions. There is a gamma nail in the proximal right femur and a large well corticated focus of ossification inferomedial to the right femoral neck. Soft tissues: The visualized bowel gas pattern is normal. No suspicious soft tissue calcifications. IMPRESSION: No acute bony abnormality. Dictated by: Paco Issa M.D. on 05/25/2025 at 16:04 Approved by: Paco Issa M.D. on 05/25/2025 at 16:05
== END ==
PROVIDERS: PCP Physician Assistant; Referring Provider Physician Assistant; Visit Provider Physician Assistant
DX: M25.552 Pain in left hip (principal); M89.8X5 Other specified disorders of bone, thigh
CPT/HCPCS: 73502; 73552

== ENCOUNTER → 2025-06-24 09:36 | Outpatient (CLI) | payer OTHER, SELFPAY ==
--- NOTE | 2025-06-24 09:36 | DI.CT.S_ITS ---
PROCEDURE: CT LUNG LOW DOSE SCREENING INDICATIONS: Chronic smoker, eval for nodule TECHNIQUE: Noncontrast 2.0-2.5 mm thick sections acquired from the pulmonary apices to the posterior costophrenic angles. 7 mm thick axial MIP, and 5 mm coronal and sagittal reformats were then acquired. For radiation dose reduction, the following was used: automated exposure control, adjustment of mA and/or kV according to patient size. COMPARISON: [facility], CT, CT CHEST WO CON, 08/25/2024, 14:46. [facility], CT, CT LUNG LOW DOSE SCREENING, 04/05/2024, 8:43. FINDINGS: Image quality: Diagnostic. Lower Neck: No enlarged lymph nodes. Thyroid: No thyroid nodules which require sonographic follow up, per consensus guidelines. Axillae: No enlarged lymph nodes. Chest Wall: Unremarkable. Bones: No acute vertebral body compression fractures. Multilevel spondylitic changes throughout the imaged spine. No suspicious osseous lesions. Lungs and Pleura: No pneumothorax or pleural effusions. Upper lobe predominant pulmonary emphysematous changes. Stable 3 mm anterior left lower lobe pulmonary nodule (109/series 6). Stable 3 mm subpleural nodule in the medial right lower lobe (217/series 3). Stable 5 mm posterior right lower lobe nodule (249/series 3). Previously described 1.0 cm irregular nodule in the right upper lobe peripherally continues to decrease in size and conspicuity. This appears to be in close proximity area of scarring. It measures approximately 5 x 4 mm (130/series 3). No new suspicious or enlarging pulmonary nodules. No septal thickening or nodularity. Visualized airways are patent. Heart: Heart size is normal. No pericardial effusion. Thoracic Vessels: The aorta and pulmonary arteries demonstrate normal size. Mediastinum and Kita: No enlarged lymph nodes. Esophagus: No wall thickening. No hiatal hernia. Upper Abdomen: Visualized upper abdomen solid organs and bowel loops appear normal. IMPRESSION: Centrilobular pulmonary emphysematous changes. No suspicious pulmonary nodules. LUNG-RADS 2; continued annual screening, if eligible. Clinically Significant Non-pulmonary Findings: None. Dictated by: Reagan Arnold M.D. on 06/24/2025 at 18:29 Approved by: Reagan Arnold M.D. on 06/24/2025 at 18:45
== END ==
LOC: CT 09:36
PROVIDERS: PCP Physician Assistant; Referring Provider Internal Medicine Critical Care Medicine; Visit Provider Internal Medicine Critical Care Medicine
DX: Z12.2 Encounter for screening for malignant neoplasm of respiratory organs (principal); F17.210 Nicotine dependence, cigarettes, uncomplicated; R91.8 Other nonspecific abnormal finding of lung field
CPT/HCPCS: 71271